=== PATIENT | male | born 1980 | race African-American/Black ===

== ENCOUNTER 2016-10-17 16:45 | Inpatient (IN) | payer OTHER ==
[~2016-10-17] VITALS: Ht 337.8 cm; Wt 86.7 kg
[~2016-10-17 16:45] MED LIST: Folic Acid PO; KEPP500 PO; LEVO500T15 PO; Multivitamins,Ther W-Minerals PO; PHEN100C4 PO; Thiamine Hcl PO
[2016-10-17] MEDS ORDERED: SODIUM CHLORIDE 0.9% 1,000 ML IV ONE ×2 (17:04→18:05)
[2016-10-17 17:26] LABS: HEMATOCRIT. 44.7 % (42.0-52.0); HEMOGLOBIN. 14.2 g/dL (14.0-18.0); MEAN CORPUSCULAR HEMOGLOBIN 33.8 pg (28.0-32.0); MEAN CORPUSCULAR HGB CONC 31.8 g/dL (31.0-37.0); MEAN CORPUSCULAR VOLUME 106.3 fL (80.0-94.0); MEAN PLATELET VOLUME 7.8 fl (7.4-10.4); PLATELET 189 x1000/uL (130-400); RED CELL DISTRIBUTION WIDTH 13.5 % (11.6-14.6); WHITE BLOOD COUNT 11.6 x1000/uL (4.5-11.0)
[2016-10-17 17:32] LABS: DIFFERENTIAL COMMENT 1
[2016-10-17 17:33] LABS: ANION GAP 39; CALCIUM 9.1 mg/dL (8.5-10.1); CHLORIDE 96 mEq/L (98-107); ETHANOL BLOOD 31 mg/dL; INDEX HEMOLYSI 1 (1-3); INDEX ICTERIC 1 (1-4); INDEX LIPEMIC 1 (1-3); PARTIAL THROMBOPLASTIN TIME 28.9 sec (24.0-34.0); PROTHROMBIN TIME 10.7 sec; UREA NITROGEN BLOOD 10 mg/dL (7-21)
[2016-10-17 17:36] LABS: PHENYTOIN 1.1 ug/mL (10-20); eGFR > 60 mL/min (>60)
[2016-10-17 17:38] LABS: CARBON DIOXIDE 6 mEq/L (21-32)
[2016-10-17 18:11] LABS: GIANT PLATELETS FEW; PLATELET ESTIMATE NORMAL
[2016-10-17] MEDS ORDERED: PHENYTOIN SODIUM 1,000 MG in SODIUM CHLORIDE 0.9% 100 ML IV ONE (18:15)
[2016-10-17] MEDS ORDERED: LORAZEPAM 2MG/ML CPJ IV ONE (18:45)
[2016-10-17] MEDS ORDERED: HYDROMORPHONE HCL/PF 2MG/ML CPJ IV PRN (19:00)
[2016-10-17] MEDS ORDERED: LORAZEPAM 2MG/ML CPJ IV PRN (19:00)
[2016-10-17] MEDS ORDERED: MAGNESIUM/ALUMINUM HYDROXIDE/SIMETHICONE 30ML UDC PO PRN (19:00)
[2016-10-17] MEDS ORDERED: GUAIFENESIN 200MG/10ML SUGAR FREE UDC PO PRN (19:00)
[2016-10-17] MEDS ORDERED: LEVOFLOXACIN 500MG PREMIX 100 ML IV NR (19:00)
[2016-10-17] MEDS ORDERED: IPRATROPIUM/ALBUTEROL 0.5-3(2.5)MG/3ML NEB INH PRN (19:00)
[2016-10-17] MEDS ORDERED: ONDANSETRON HCL 4MG/2ML VIAL IV PRN (19:00)
[2016-10-17] MEDS ORDERED: DIPHENHYDRAMINE 50MG/ML VIAL IV PRN (19:00)
[2016-10-17] MEDS ORDERED: DOCUSATE SODIUM 100MG CAPSULE PO PRN (19:00)
[2016-10-17] MEDS ORDERED: NA PHOS,M-B/NA PHOS,DI-BA ENEMA 118ML PR PRN (19:00)
[2016-10-17] MEDS ORDERED: CLONIDINE 0.1MG TABLET PO PRN (19:00)
[2016-10-17] MEDS ORDERED: HYDROCODONE/ACETAMINOPHEN 5/325MG TABLET PO PRN (19:00)
[2016-10-17 19:07] LABS: BG BASE EXCESS -20.6 mmol/L (-2.0-2.0); BG CARBOXYHEMOGLOBIN 0.3 % (0.5-1.5); BG DEOXYHEMOGLOBIN 14.1 % (0.0-5.0); BG FRACTION INSPIRED OXYGEN 100; BG METHEMOGLOBIN 0.5 % (0.0-1.5); BG OXYGEN SATURATION 85.8 % (92.0-98.5); BG OXYHEMOGLOBIN 85.1 % (94.0-97.0); BG PCO2 40.1 mmHg (35.0-45.0); BG PH 7.013 (7.350-7.450); BG SAMPLE SITE RIGHT BRACHIAL; BG TOTAL HEMOGLOBIN 14.7 g/dL (12.0-18.0); BG VENT MODE MASK - NRB
[2016-10-17] MEDS ORDERED: SODIUM BICARBONATE 8.4% 1 MEQ/ML 50ML SYR IV ONE (19:15)
[2016-10-17] MEDS ORDERED: SODIUM BICARBONATE 100 MEQ in DEXTROSE 5% WATER 1,000 ML IV SCH (19:15)
[2016-10-17 19:40] LABS: CREATINE KINASE MB FRACTION 0.8 ng/mL (0.5-3.6)
[2016-10-17 19:41] LABS: *AMPHETAMINES SCREEN URINE NEGATIVE (NEGATIVE); *BARBITURATES SCREEN URINE NEGATIVE (NEGATIVE); *BENZODIAZEPINES SCREEN URINE NEGATIVE (NEGATIVE); *COCAINE SCREEN URINE NEGATIVE (NEGATIVE); CANNABINOID URINE SCREEN PRESUMTIVE POSITIVE (NEGATIVE); ECSTASY MDMA SCREEN URINE NEGATIVE (NEGATIVE); METHADONE URINE SCREEN NEGATIVE (NEGATIVE); OPIATES URINE SCREEN NEGATIVE (NEGATIVE); PHENCYCLIDINE URINE SCREEN NEGATIVE (NEGATIVE)
[2016-10-17] MEDS: ACETAMINOPHEN 325MG TABLET PO PRN (21:09)
[2016-10-18] VITALS (9 sets, daily range): BP systolic 147–165; BP diastolic 64–121
[2016-10-18] MEDS: ACETAMINOPHEN 325MG TABLET PO PRN (04:23)
[2016-10-18 05:49] LABS: BASOPHILS % 0.5 % (0.0-2.0); EOSINOPHILS % 0.1 % (0.0-5.0); HEMATOCRIT. 38.6 % (42.0-52.0); HEMOGLOBIN. 13.3 g/dL (14.0-18.0); LYMPHOCYTES % 12.3 % (20.0-50.0); MEAN CORPUSCULAR HGB CONC 34.6 g/dL (31.0-37.0); MEAN CORPUSCULAR VOLUME 98.2 fL (80.0-94.0); MEAN PLATELET VOLUME 7.4 fl (7.4-10.4); MONOCYTES % 12.7 % (2.0-8.0); NEUTROPHILS % 74.4 % (40.0-76.0); PLATELET 147 x1000/uL (130-400); RED BLOOD CELL COUNT 3.93 mill/uL (4.7-6.1); WHITE BLOOD COUNT 8.6 x1000/uL (4.5-11.0)
[2016-10-18 05:52] LABS: DIFFERENTIAL COMMENT 1
[2016-10-18 06:11] LABS: ALANINE AMINOTRANSFERASE 27 IU/L (13-61); ALBUMIN 3.7 g/dL (3.4-5.0); ANION GAP 15; CALCIUM 8.3 mg/dL (8.5-10.1); CARBON DIOXIDE 30 mEq/L (21-32); CHLORIDE 96 mEq/L (98-107); INDEX HEMOLYSI 1 (1-3); INDEX ICTERIC 1 (1-4); INDEX LIPEMIC 1 (1-3); LDL CHOLESTEROL 114 mg/dL (5-100); T4 FREE 0.69 ng/dL (0.76-1.46); THYROID STIMULATING HORMONE 0.64 uIU/mL (0.36-3.74); TRIGLYCERIDE 100 mg/dL (0-150); UREA NITROGEN BLOOD 5 mg/dL (7-21); eGFR > 60 mL/min (>60)
[2016-10-18] MEDS: DEXT 5%/0.45% NACL 1000ML 1,000 ML IV SCH (06:50)
[2016-10-18 07:57] LABS: HDL CHOLESTEROL 196 mg/dL (40-59)
[2016-10-18] MEDS ORDERED: POTASSIUM CHLORIDE INJ 40 MEQ in DEXT 5% WATER 250 ML IV SCH (10:00)
[2016-10-18 10:15] LABS: BG BASE EXCESS 5.2 mmol/L (-2.0-2.0); BG CARBOXYHEMOGLOBIN 0.8 % (0.5-1.5); BG DEOXYHEMOGLOBIN 3.9 % (0.0-5.0); BG FRACTION INSPIRED OXYGEN 21; BG HCO3 ACT 28.9 mmol/L (22.0-26.0); BG METHEMOGLOBIN 0.5 % (0.0-1.5); BG OXYHEMOGLOBIN 94.8 % (94.0-97.0); BG PH 7.487 (7.350-7.450); BG PO2 78.4 mmHg (75.0-100.0); BG SAMPLE SITE RIGHT RADIAL; BG TOTAL HEMOGLOBIN 14.7 g/dL (12.0-18.0); BG VENT MODE ROOM AIR
[2016-10-18 10:39] LABS: MAGNESIUM 2.1 mg/dL (1.8-2.4)
[2016-10-18] MEDS: ASPIRIN 81MG EC TABLET PO SCH (10:50)
[2016-10-18] MEDS ORDERED: LEVOFLOXACIN 500MG PREMIX 100 ML IV SCH (20:00)
[2016-10-19] VITALS (8 sets, daily range): BP systolic 131–158; BP diastolic 79–114
[2016-10-19] MEDS: DEXT 5%/0.45% NACL 1000ML 1,000 ML IV SCH (01:12)
[2016-10-19 05:57] LABS: BASOPHILS % 0.8 % (0.0-2.0); EOSINOPHILS % 2.7 % (0.0-5.0); HEMATOCRIT. 44.1 % (42.0-52.0); HEMOGLOBIN. 15.1 g/dL (14.0-18.0); LYMPHOCYTES % 21.7 % (20.0-50.0); MEAN CORPUSCULAR HGB CONC 34.2 g/dL (31.0-37.0); MEAN CORPUSCULAR VOLUME 99.2 fL (80.0-94.0); MEAN PLATELET VOLUME 8.3 fl (7.4-10.4); MONOCYTES % 14.2 % (2.0-8.0); NEUTROPHILS % 60.6 % (40.0-76.0); PLATELET 156 x1000/uL (130-400); RED BLOOD CELL COUNT 4.44 mill/uL (4.7-6.1); RED CELL DISTRIBUTION WIDTH 12.7 % (11.6-14.6); WHITE BLOOD COUNT 6.7 x1000/uL (4.5-11.0)
[2016-10-19 06:27] LABS: ANION GAP 13; CARBON DIOXIDE 28 mEq/L (21-32); CHLORIDE 100 mEq/L (98-107); INDEX HEMOLYSI 1 (1-3); INDEX ICTERIC 1 (1-4); INDEX LIPEMIC 1 (1-3); eGFR > 60 mL/min (>60)
[2016-10-19 06:30] LABS: UREA NITROGEN BLOOD 4 mg/dL (7-21)
[2016-10-19] MEDS: ASPIRIN 81MG EC TABLET PO SCH (08:21)
[2016-10-19] MEDS ORDERED: FOLIC ACID 1MG TABLET PO SCH (09:00)
[2016-10-19] MEDS ORDERED: THIAMINE HCL 100MG TABLET PO SCH (09:00)
[2016-10-19] MEDS ORDERED: LEVETIRACETAM 500MG TABLET PO SCH (09:00)
[2016-10-19] MEDS ORDERED: MULTIVITAMINS,THER W-MINERALS TABLET PO SCH (09:00)
[2016-10-19] MEDS ORDERED: PHENYTOIN SODIUM EXTENDED 100MG CAPSULE PO SCH (09:00)
[2016-10-19] MEDS ORDERED: POTASSIUM CHLORIDE 20MEQ TABLET SR PO SCH (09:00)
[2016-10-19 09:13] LABS: PHOSPHORUS 1.7 mg/dL (2.5-4.9)
[2016-10-19] MEDS ORDERED: LEVOFLOXACIN 500MG PREMIX 100 ML IV SCH (20:00)
== END 2016-10-19 11:50 | disposition home or self-care (01) | DRG 775 ==
LOC: ER 17:05 → 5EST 18:56
PROVIDERS: ADMIT Internal Medicine; ATTEND Internal Medicine
DX: F10.239 Alcohol dependence with withdrawal, unspecified (principal); G93.41 Metabolic encephalopathy; E87.2 Acidosis; R65.10 Systemic inflammatory response syndrome (SIRS) of non-infectious origin without acute organ dysfunction; G31.9 Degenerative disease of nervous system, unspecified; E83.39 Other disorders of phosphorus metabolism; E86.0 Dehydration; G40.509 Epileptic seizures related to external causes, not intractable, without status epilepticus; E78.5 Hyperlipidemia, unspecified; D64.9 Anemia, unspecified; E87.6 Hypokalemia; I10 Essential (primary) hypertension; Z90.49 Acquired absence of other specified parts of digestive tract; Z91.19 Patient's noncompliance with other medical treatment and regimen; Z79.899 Other long term (current) drug therapy
CPT/HCPCS: 36415; 36600; 70450; 71010; 80048; 80053; 80061; 80185; 80305; 82375; 82550; 82553; 82805; 82962; 83605; 83735; 84100; 84439; 84443; 85025; 85610; 85730; 93005; 96365; 96366; 96367; 96368; 96375; 99291; G0482; J1165; J1956; J2060; J3480; J3490; J7030; J7050; J7060; J7070

== ENCOUNTER 2017-04-16 21:02 | Inpatient (IN) | payer OTHER ==
[~2017-04-16] VITALS: Ht 175.3 cm; Wt 74.4 kg
[~2017-04-16 21:02] MED LIST changes: -LEVO500T15 PO; +LEVO500T2 PO
[2017-04-16] MEDS ORDERED: ONDANSETRON HCL 4MG/2ML VIAL IV STA (21:53)
[2017-04-16] MEDS ORDERED: SODIUM CHLORIDE 0.9% 1,000 ML IV ONE (21:53)
[2017-04-16] MEDS ORDERED: LORAZEPAM 2MG/ML CPJ IV ONE (22:00)
[2017-04-16] MEDS ORDERED: LEVETIRACETAM 500MG PREMIX 100 ML IV ONE (22:00)
[2017-04-16] MEDS ORDERED: LORAZEPAM 2MG/ML CPJ ONE (22:02)
[2017-04-16 22:22] LABS: HEMATOCRIT. 42.2 % (42.0-52.0); HEMOGLOBIN. 14.2 g/dL (14.0-18.0); MEAN CORPUSCULAR HEMOGLOBIN 35.4 pg (28.0-32.0); MEAN CORPUSCULAR VOLUME 105.3 fL (80.0-94.0); MEAN PLATELET VOLUME 8.2 fl (7.4-10.4); PLATELET 141 x1000/uL (130-400); RED BLOOD CELL COUNT 4.01 mill/uL (4.7-6.1); RED CELL DISTRIBUTION WIDTH 13.2 % (11.6-14.6)
[2017-04-16 22:35] LABS: CHLORIDE 95 mEq/L (98-107)
[2017-04-16 22:43] LABS: CARBON DIOXIDE 14 mEq/L (21-32); ETHANOL BLOOD < 10 mg/dL
[2017-04-16 22:48] LABS: PLATELET ESTIMATE NORMAL
[2017-04-16] MEDS ORDERED: SODIUM CHLORIDE 0.9% 1,000 ML IV SCH (23:28)
[2017-04-16] MEDS ORDERED: PHENYTOIN SODIUM 500 MG in SODIUM CHLORIDE 0.9% 50 ML IV ONE (23:30)
[2017-04-17] MEDS ORDERED: IPRATROPIUM/ALBUTEROL 0.5-3(2.5)MG/3ML NEB INH PRN (00:45)
[2017-04-17] MEDS ORDERED: ONDANSETRON HCL 4MG/2ML VIAL IV PRN (00:45)
[2017-04-17] MEDS ORDERED: LORAZEPAM 2MG/ML CPJ IV PRN (00:45)
[2017-04-17] MEDS ORDERED: HYDROCODONE/ACETAMINOPHEN 5/325MG TABLET PO PRN (00:45)
[2017-04-17] MEDS ORDERED: CLONIDINE 0.1MG TABLET PO PRN (00:45)
[2017-04-17] MEDS ORDERED: MAGNESIUM/ALUMINUM HYDROXIDE/SIMETHICONE 30ML UDC PO PRN (00:45)
[2017-04-17] MEDS ORDERED: MVI, ADULT NO.1 10 ML, FOLIC ACID 1 MG, THIAMINE HCL 100 MG in SODIUM CHLORIDE 0.9% 1,0... IV SCH ×4 (02:00)
[2017-04-17 03:25] LABS: *AMPHETAMINES SCREEN URINE NEGATIVE (NEGATIVE); *BARBITURATES SCREEN URINE NEGATIVE (NEGATIVE); *BENZODIAZEPINES SCREEN URINE NEGATIVE (NEGATIVE); *COCAINE SCREEN URINE NEGATIVE (NEGATIVE); CANNABINOID URINE SCREEN PRESUMTIVE POSITIVE (NEGATIVE); METHADONE URINE SCREEN NEGATIVE (NEGATIVE); OPIATES URINE SCREEN NEGATIVE (NEGATIVE); PHENCYCLIDINE URINE SCREEN NEGATIVE (NEGATIVE)
[2017-04-17 03:45] VITALS: BP 143/90
[2017-04-17 05:26] VITALS: BP 143/90
[2017-04-17] MEDS: PHENYTOIN SODIUM EXTENDED 100MG CAPSULE PO SCH ×3 (06:37→21:48)
[2017-04-17] MEDS: CHLORDIAZEPOXIDE 25MG CAPSULE PO SCH ×3 (06:37→21:48)
[2017-04-17 08:00] VITALS: BP 126/82
[2017-04-17] MEDS: LEVETIRACETAM 500MG/5ML CUP PO SCH ×2 (08:15→21:48)
[2017-04-17 11:23] LABS: HEMOGLOBIN. 14.1 g/dL (14.0-18.0); MEAN CORPUSCULAR HEMOGLOBIN 35.7 pg (28.0-32.0); MEAN CORPUSCULAR VOLUME 101.1 fL (80.0-94.0); MEAN PLATELET VOLUME 9.1 fl (7.4-10.4); PLATELET 119 x1000/uL (130-400); RED BLOOD CELL COUNT 3.96 mill/uL (4.7-6.1); RED CELL DISTRIBUTION WIDTH 12.9 % (11.6-14.6)
[2017-04-17 11:49] LABS: CARBON DIOXIDE 25 mEq/L (21-32); CHLORIDE 98 mEq/L (98-107); TROPONIN I 0.21 ng/mL (0.00-0.04)
[2017-04-17 11:53] LABS: CREATINE KINASE 1291 IU/L (39-308)
[2017-04-17 12:00] VITALS: BP 127/74
[2017-04-17] MEDS: ACETAMINOPHEN 325MG TABLET PO PRN ×3 (12:39→21:49)
[2017-04-17 13:57] LABS: PLATELET ESTIMATE SLIGHTLY DECREASED
[2017-04-17] MEDS ORDERED: POTASSIUM CHLORIDE 20MEQ TABLET SR PO NR (14:30)
[2017-04-17] MEDS ORDERED: PHEN100C4 PO (15:57)
[2017-04-17 16:00] VITALS: BP 115/71
[2017-04-17 17:45] LABS: TROPONIN I 0.16 ng/mL (0.00-0.04)
[2017-04-17 17:46] LABS: CREATINE KINASE MB FRACTION 1.7 ng/mL (0.5-3.6)
[2017-04-17 18:05] LABS: HEPATITIS B SURFACE ANTIGEN NEGATIVE
[2017-04-17 18:34] LABS: HEPATITIS B CORE AB IGM NEGATIVE
[2017-04-17 18:35] LABS: HEPATITIS A AB IGM NEGATIVE (NEGATIVE)
[2017-04-17 20:00] VITALS: BP 134/88
[2017-04-18] VITALS: BP 125/74
[2017-04-18 04:00] VITALS: BP 104/61
[2017-04-18] MEDS: ACETAMINOPHEN 325MG TABLET PO PRN (04:43)
[2017-04-18] MEDS: PHENYTOIN SODIUM EXTENDED 100MG CAPSULE PO SCH ×3 (05:52→21:21)
[2017-04-18] MEDS: SODIUM CHLORIDE 0.9% 1,000 ML IV SCH ×2 (05:52→21:24)
[2017-04-18] MEDS: CHLORDIAZEPOXIDE 25MG CAPSULE PO SCH ×3 (05:52→21:21)
[2017-04-18 05:56] LABS: BASOPHILS % 0.4 % (0.0-2.0); EOSINOPHILS % 1.4 % (0.0-5.0); HEMOGLOBIN. 13.8 g/dL (14.0-18.0); LYMPHOCYTES % 13.1 % (20.0-50.0); MEAN PLATELET VOLUME 8.9 fl (7.4-10.4); MONOCYTES % 10.2 % (2.0-8.0); NEUTROPHILS % 74.9 % (40.0-76.0); PLATELET 114 x1000/uL (130-400); RED BLOOD CELL COUNT 3.96 mill/uL (4.7-6.1); RED CELL DISTRIBUTION WIDTH 12.8 % (11.6-14.6)
[2017-04-18 06:38] LABS: CHLORIDE 101 mEq/L (98-107)
[2017-04-18 06:50] LABS: CARBON DIOXIDE 26 mEq/L (21-32)
[2017-04-18 08:00] VITALS: BP 106/65
[2017-04-18] MEDS ORDERED: INFLUENZA VIRUS VACCINE 0.5ML SYR IM ONE (08:00)
[2017-04-18] MEDS ORDERED: PHENYTOIN SODIUM 500 MG in SODIUM CHLORIDE 0.9% 50 ML IV SCH (09:00)
[2017-04-18] MEDS: FOLIC ACID 1MG TABLET PO SCH (10:03)
[2017-04-18] MEDS: LEVETIRACETAM 500MG/5ML CUP PO SCH ×2 (10:03→21:21)
[2017-04-18] MEDS: MULTIVITAMINS,THER W-MINERALS TABLET PO SCH (10:03)
[2017-04-18] MEDS: THIAMINE HCL 100MG TABLET PO SCH (10:03)
[2017-04-18 12:00] VITALS: BP 118/82
[2017-04-18 16:00] VITALS: BP 122/92
[2017-04-18 20:00] VITALS: BP 121/84
[2017-04-19] VITALS: BP 122/82
[2017-04-19 04:00] VITALS: BP 114/62
[2017-04-19] MEDS: PHENYTOIN SODIUM EXTENDED 100MG CAPSULE PO SCH (05:10)
[2017-04-19] MEDS: CHLORDIAZEPOXIDE 25MG CAPSULE PO SCH (05:10)
[2017-04-19 06:31] LABS: BASOPHILS % 0.9 % (0.0-2.0); EOSINOPHILS % 2.3 % (0.0-5.0); HEMATOCRIT. 39.2 % (42.0-52.0); HEMOGLOBIN. 13.8 g/dL (14.0-18.0); LYMPHOCYTES % 15.1 % (20.0-50.0); MEAN CORPUSCULAR HEMOGLOBIN 35.8 pg (28.0-32.0); MEAN CORPUSCULAR VOLUME 101.6 fL (80.0-94.0); MEAN PLATELET VOLUME 9.2 fl (7.4-10.4); MONOCYTES % 11.8 % (2.0-8.0); NEUTROPHILS % 69.9 % (40.0-76.0); PLATELET 122 x1000/uL (130-400); RED BLOOD CELL COUNT 3.86 mill/uL (4.7-6.1); RED CELL DISTRIBUTION WIDTH 12.9 % (11.6-14.6)
[2017-04-19 07:18] LABS: CARBON DIOXIDE 28 mEq/L (21-32); CHLORIDE 105 mEq/L (98-107)
[2017-04-19 08:00] VITALS: BP 133/81
[2017-04-19] MEDS ORDERED: POTASSIUM CHLORIDE 20MEQ TABLET SR PO SCH (09:00)
[2017-04-19] MEDS: MULTIVITAMINS,THER W-MINERALS TABLET PO SCH (09:04)
[2017-04-19] MEDS: LEVETIRACETAM 500MG/5ML CUP PO SCH (09:04)
[2017-04-19] MEDS: FOLIC ACID 1MG TABLET PO SCH (09:05)
[2017-04-19] MEDS: THIAMINE HCL 100MG TABLET PO SCH (09:12)
[2017-04-19] MEDS: SODIUM CHLORIDE 0.9% 1,000 ML IV SCH (09:13)
[2017-04-19] MEDS ORDERED: KEPPSOL PO (11:12)
[2017-04-19] MEDS ORDERED: THIA100T72 PO (11:12)
[2017-04-19] MEDS ORDERED: FOLI-43 PO (11:12)
[2017-04-19] MEDS ORDERED: PHEN100C4 PO (11:12)
== END 2017-04-19 12:15 | disposition left against medical advice (07) | DRG 53 ==
LOC: ER 21:03 → 5WST 23:30 → EDBEDREQ 23:34 → ENRESERV 04-17 02:09
PROVIDERS: ADMIT Internal Medicine; ATTEND Internal Medicine
DX: G40.409 Other generalized epilepsy and epileptic syndromes, not intractable, without status epilepticus (principal); E87.8 Other disorders of electrolyte and fluid balance, not elsewhere classified; K76.0 Fatty (change of) liver, not elsewhere classified; E86.0 Dehydration; F10.10 Alcohol abuse, uncomplicated; F12.90 Cannabis use, unspecified, uncomplicated; Z59.0 Homelessness; Z60.2 Problems related to living alone; Z79.899 Other long term (current) drug therapy; Z90.49 Acquired absence of other specified parts of digestive tract; Z91.14 Patient's other noncompliance with medication regimen; Z91.19 Patient's noncompliance with other medical treatment and regimen; Z53.21 Procedure and treatment not carried out due to patient leaving prior to being seen by health care provider
CPT/HCPCS: 36415; 70450; 70551; 71010; 76700; 80048; 80053; 80185; 80305; 82550; 82553; 83735; 84484; 85025; 86705; 86709; 86803; 87340; 90686; 93005; 93970; 96365; 96367; 96375; 97161; 99291; G0482; J1165; J1953; J2060; J2405; J3411; J3490; J7030

== ENCOUNTER 2017-06-14 08:11 | Emergency (ER) | payer OTHER ==
[~2017-06-14] VITALS: Ht 172.7 cm; Wt 70.0 kg
[~2017-06-14 08:11] MED LIST changes: +FOLI-43 PO; +KEPPSOL PO; -LEVO500T2 PO; +THIA100T72 PO
[2017-06-14] MEDS ORDERED: SODIUM CHLORIDE 0.9% 1,000 ML IV ONE (08:19)
[2017-06-14] MEDS ORDERED: LEVETIRACETAM 500MG PREMIX 100 ML IV ONE (08:30)
[2017-06-14 08:52] LABS: BASOPHILS % 1.3 % (0.0-2.0); EOSINOPHILS % 2.1 % (0.0-5.0); HEMATOCRIT. 41.1 % (42.0-52.0); HEMOGLOBIN. 14.1 g/dL (14.0-18.0); LYMPHOCYTES % 18.2 % (20.0-50.0); MEAN CORPUSCULAR HEMOGLOBIN 35.6 pg (28.0-32.0); MEAN CORPUSCULAR VOLUME 103.9 fL (80.0-94.0); MEAN PLATELET VOLUME 7.4 fl (7.4-10.4); MONOCYTES % 9.1 % (2.0-8.0); NEUTROPHILS % 69.3 % (40.0-76.0); PLATELET 200 x1000/uL (130-400); RED BLOOD CELL COUNT 3.96 mill/uL (4.7-6.1); RED CELL DISTRIBUTION WIDTH 13.1 % (11.6-14.6)
[2017-06-14 08:58] LABS: CHLORIDE 100 mEq/L (98-107)
[2017-06-14 09:00] LABS: PARTIAL THROMBOPLASTIN TIME 22.7 sec (23.4-31.0); PROTHROMBIN TIME 10.7 sec (9.4-11.6)
[2017-06-14 09:05] LABS: CARBON DIOXIDE 20 mEq/L (21-32); ETHANOL BLOOD 69 mg/dL
[2017-06-14] MEDS ORDERED: LEVETIRACETAM 500MG TABLET PO ONE (09:15)
[2017-06-14] MEDS ORDERED: PHENYTOIN SODIUM 1,000 MG in SODIUM CHLORIDE 0.9% 100 ML IV ONE (09:15)
[2017-06-14 10:33] LABS: *AMPHETAMINES SCREEN URINE NEGATIVE (NEGATIVE); *BARBITURATES SCREEN URINE NEGATIVE (NEGATIVE); *BENZODIAZEPINES SCREEN URINE NEGATIVE (NEGATIVE); *COCAINE SCREEN URINE PRESUMTIVE POSITIVE (NEGATIVE); CANNABINOID URINE SCREEN PRESUMTIVE POSITIVE (NEGATIVE); METHADONE URINE SCREEN NEGATIVE (NEGATIVE); OPIATES URINE SCREEN NEGATIVE (NEGATIVE); PHENCYCLIDINE URINE SCREEN NEGATIVE (NEGATIVE)
[2017-06-14 11:50] VITALS: BP 141/76
== END 2017-06-14 11:58 | disposition home or self-care (01) ==
LOC: ER 08:24
DX: G40.409 Other generalized epilepsy and epileptic syndromes, not intractable, without status epilepticus (principal); F10.229 Alcohol dependence with intoxication, unspecified; E87.2 Acidosis; R73.9 Hyperglycemia, unspecified; F12.10 Cannabis abuse, uncomplicated; Z91.14 Patient's other noncompliance with medication regimen; Z90.49 Acquired absence of other specified parts of digestive tract; Y90.3 Blood alcohol level of 60-79 mg/100 ml
CPT/HCPCS: 36415; 70450; 80048; 80185; 80305; 85025; 85610; 85730; 96365; 96366; 96367; 99285; G0482; J1165; J1953; J7030; J7050

== ENCOUNTER 2017-09-04 16:38 | Emergency (ER) | payer OTHER ==
[~2017-09-04] VITALS: Ht 185.4 cm; Wt 91.0 kg
[2017-09-04] MEDS ORDERED: ACETAMINOPHEN WITH CODEINE 300/30MG TABLET PO STA (16:58)
[2017-09-04] MEDS ORDERED: LEVETIRACETAM 500MG PREMIX 100 ML IV ONE (17:00)
[2017-09-04 17:20] LABS: HEMATOCRIT. 40.2 % (42.0-52.0); HEMOGLOBIN. 13.8 g/dL (14.0-18.0); MEAN CORPUSCULAR HEMOGLOBIN 35.2 pg (28.0-32.0); MEAN CORPUSCULAR VOLUME 102.6 fL (80.0-94.0); MEAN PLATELET VOLUME 8.8 fl (7.4-10.4); PLATELET 158 x1000/uL (130-400); RED BLOOD CELL COUNT 3.92 mill/uL (4.7-6.1); RED CELL DISTRIBUTION WIDTH 13.3 % (11.6-14.6)
[2017-09-04 17:22] LABS: CHLORIDE 95 mEq/L (98-107)
[2017-09-04 17:27] LABS: ETHANOL BLOOD < 10 mg/dL; INR 1.1
[2017-09-04 18:42] LABS: CLARITY URINE CLEAR (CLEAR); COLOR URINE YELLOW (YELLOW); KETONES URINE 3+ (NEGATIVE); LEUKOCYTE ESTERASE URINE NEGATIVE (NEGATIVE); NITRITE URINE NEGATIVE (NEGATIVE); OCCULT BLOOD URINE 1+ (NEGATIVE); PROTEIN URINE 2+ (NEGATIVE); SPECIFIC GRAVITY URINE 1.022 (1.005-1.030)
[2017-09-04] MEDS ORDERED: PHENYTOIN SODIUM 1,000 MG in SODIUM CHLORIDE 0.9% 100 ML IV ONE (18:45)
[2017-09-04 18:49] LABS: PLATELET ESTIMATE NORMAL
[2017-09-04 19:03] LABS: *AMPHETAMINES SCREEN URINE NEGATIVE (NEGATIVE); *BARBITURATES SCREEN URINE NEGATIVE (NEGATIVE); *BENZODIAZEPINES SCREEN URINE NEGATIVE (NEGATIVE); *COCAINE SCREEN URINE NEGATIVE (NEGATIVE); CANNABINOID URINE SCREEN PRESUMTIVE POSITIVE (NEGATIVE); METHADONE URINE SCREEN NEGATIVE (NEGATIVE); OPIATES URINE SCREEN NEGATIVE (NEGATIVE); PHENCYCLIDINE URINE SCREEN NEGATIVE (NEGATIVE)
[2017-09-04 22:46] VITALS: BP 135/85
== END 2017-09-04 22:50 | disposition home or self-care (01) ==
LOC: ER 16:49
DX: G40.909 Epilepsy, unspecified, not intractable, without status epilepticus (principal); F10.20 Alcohol dependence, uncomplicated; Z90.49 Acquired absence of other specified parts of digestive tract
CPT/HCPCS: 36415; 70450; 80053; 80185; 80305; 81003; 85025; 85610; 96365; 96366; 96367; 99285; G0482; J1165; J1953; J7050

== ENCOUNTER 2018-07-20 19:14 | Inpatient (IN) | payer OTHER ==
[~2018-07-20] VITALS: Ht 172.7 cm; Wt 81.6 kg
[~2018-07-20 19:14] MED LIST changes: +KEPPSOL GT
[2018-07-20 22:02] LABS: HEMATOCRIT. 40.9 % (42.0-52.0); MEAN CORPUSCULAR HEMOGLOBIN 34.8 pg (28.0-32.0); MEAN CORPUSCULAR VOLUME 101.4 fL (80.0-94.0); MEAN PLATELET VOLUME 9.9 fl (7.4-10.4); PLATELET 147 x1000/uL (130-400); RED BLOOD CELL COUNT 4.03 mill/uL (4.7-6.1); RED CELL DISTRIBUTION WIDTH 12.9 % (11.6-14.6)
[2018-07-20 22:03] LABS: CHLORIDE 87 mEq/L (98-107)
[2018-07-20 22:07] LABS: ETHANOL BLOOD < 10 mg/dL
[2018-07-20] MEDS ORDERED: SODIUM CHLORIDE 0.9% 1,000 ML IV ONE ×4 (22:15→23:45)
[2018-07-20 22:31] LABS: PLATELET ESTIMATE NORMAL
[2018-07-20 23:08] LABS: CREATINE KINASE 23106 IU/L (39-308)
[2018-07-20 23:59] LABS: CLARITY URINE CLEAR (CLEAR); COLOR URINE YELLOW (YELLOW); KETONES URINE 4+ (NEGATIVE); LEUKOCYTE ESTERASE URINE NEGATIVE (NEGATIVE); NITRITE URINE NEGATIVE (NEGATIVE); OCCULT BLOOD URINE 2+ (NEGATIVE); PROTEIN URINE TRACE (NEGATIVE); SPECIFIC GRAVITY URINE 1.012 (1.005-1.030); UROBILINOGEN URINE 0.2 E.U./dL (0.2-1.0)
[2018-07-21] MEDS ORDERED: LEVETIRACETAM 500MG PREMIX 100 ML IV ONE
[2018-07-21 00:21] LABS: *BARBITURATES SCREEN URINE NEGATIVE (NEGATIVE); *BENZODIAZEPINES SCREEN URINE NEGATIVE (NEGATIVE); *COCAINE SCREEN URINE NEGATIVE (NEGATIVE)
[2018-07-21 00:22] LABS: *AMPHETAMINES SCREEN URINE NEGATIVE (NEGATIVE); CANNABINOID URINE SCREEN NEGATIVE (NEGATIVE); METHADONE URINE SCREEN NEGATIVE (NEGATIVE); OPIATES URINE SCREEN NEGATIVE (NEGATIVE); PHENCYCLIDINE URINE SCREEN NEGATIVE (NEGATIVE)
[2018-07-21] MEDS ORDERED: HYDROCODONE/ACETAMINOPHEN 5/325MG TABLET PO PRN ×2 (00:30→06:00)
[2018-07-21] MEDS ORDERED: ONDANSETRON HCL 4MG/2ML INJ IV PRN ×2 (00:30→06:00)
[2018-07-21] MEDS ORDERED: HYDROMORPHONE HCL/PF 2MG/ML CPJ IV PRN (00:30)
[2018-07-21] MEDS ORDERED: GUAIFENESIN 200MG/10ML SUGAR FREE UDC PO PRN ×2 (00:30→06:00)
[2018-07-21] MEDS ORDERED: MAGNESIUM/ALUMINUM HYDROXIDE/SIMETHICONE 30ML UDC PO PRN ×2 (00:30→06:00)
[2018-07-21] MEDS ORDERED: DEXTROSE 50% WATER 50ML SYRINGE IV PRN (00:30)
[2018-07-21] MEDS ORDERED: ENOXAPARIN 40MG/0.4ML SYR SUBCUT SCH ×2 (00:30→09:15)
[2018-07-21] MEDS ORDERED: DOCUSATE SODIUM 100MG CAPSULE PO PRN ×2 (00:30→06:00)
[2018-07-21] MEDS ORDERED: CLONIDINE 0.1MG TABLET PO PRN ×2 (00:30→06:00)
[2018-07-21] MEDS ORDERED: LORAZEPAM 2MG/ML CPJ IV PRN ×2 (00:30→06:00)
[2018-07-21] MEDS ORDERED: IPRATROPIUM/ALBUTEROL 0.5-3(2.5)MG/3ML NEB INH PRN ×2 (00:30→06:00)
[2018-07-21] MEDS ORDERED: ACETAMINOPHEN 325MG TABLET PO PRN ×2 (00:30→06:00)
[2018-07-21] MEDS ORDERED: SODIUM CHLORIDE 0.45% 1,000 ML IV SCH (05:48)
[2018-07-21] MEDS ORDERED: MORPHINE SULFATE 4 MG/ML CPJ (NOT FOR IM USE) IV PRN (06:00)
[2018-07-21] MEDS ORDERED: NA PHOS,M-B/NA PHOS,DI-BA ENEMA 118ML PR PRN (06:00)
[2018-07-21] MEDS ORDERED: DIPHENHYDRAMINE 50MG/ML VIAL IV PRN (06:00)
[2018-07-21] MEDS: SODIUM CHLORIDE 0.9% INJ 3ML FLUSH IVF SCH ×3 (06:00→20:30)
[2018-07-21] MEDS ORDERED: DEXT 5%/0.45% NACL 1000ML 1,000 ML IV SCH (06:30)
[2018-07-21 07:03] LABS: CREATINE KINASE MB FRACTION 86.6 ng/mL (0.5-3.6)
[2018-07-21] MEDS ORDERED: SODIUM BICARBONATE 8.4% 1 MEQ/ML 50ML SYR IV SCH (07:30)
[2018-07-21] MEDS ORDERED: SODIUM BICARBONATE 100 MEQ in SODIUM CHLORIDE 0.45% 1,000 ML IV SCH (07:30)
[2018-07-21] MEDS: INSULIN LISPRO 100 UNITS/ML SUBCUT SCH ×4 (08:20→20:30)
[2018-07-21] MEDS: BLOOD SUGAR DIAGNOSTIC STRIP TEST SCH ×4 (08:40→20:30)
[2018-07-21] MEDS ORDERED: ASPIRIN 81MG EC TABLET PO SCH (09:00)
[2018-07-21 09:52] LABS: BG BASE EXCESS -12.4 mmol/L (-2.0-2.0); BG CARBOXYHEMOGLOBIN 0.4 % (0.5-1.5); BG DEOXYHEMOGLOBIN 2.3 % (0.0-5.0); BG FRACTION INSPIRED OXYGEN 21; BG HCO3 ACT 10.4 mmol/L (22.0-26.0); BG METHEMOGLOBIN 0.7 % (0.0-1.5); BG OXYGEN SATURATION 97.7 % (92.0-98.5); BG OXYHEMOGLOBIN 96.6 % (94.0-97.0); BG PCO2 18.3 mmHg (35.0-45.0); BG PH 7.373 (7.350-7.450); BG PO2 105.7 mmHg (75.0-100.0); BG SAMPLE SITE RIGHT RADIAL; BG TOTAL HEMOGLOBIN 12.5 g/dL (12.0-18.0); BG VENT MODE ROOM AIR
[2018-07-21 10:00] VITALS: BP 131/68
[2018-07-21] MEDS: SODIUM BICARBONATE 100 MEQ in SODIUM CHLORIDE 0.45% 1,000 ML IV SCH ×2 (11:17→19:57)
[2018-07-21 12:00] VITALS: BP 131/68
[2018-07-21 15:59] LABS: CHLORIDE 102 mEq/L (98-107)
[2018-07-21 16:00] VITALS: BP 128/74
[2018-07-21 16:10] LABS: CREATINE KINASE MB FRACTION 54.8 ng/mL (0.5-3.6)
[2018-07-21 16:33] LABS: CREATINE KINASE 9676 IU/L (39-308)
[2018-07-21 20:00] VITALS: BP 120/64
[2018-07-22] VITALS: BP 122/68
[2018-07-22 02:35] VITALS: BP 138/74
[2018-07-22 03:21] VITALS: BP 138/74
[2018-07-24 15:10] LABS: METHANOL BLOOD Negative % (0.000-0.010)
[2018-07-24 19:09] LABS: ETHYLENE GLYCOL None Detected (None detected)
== END 2018-07-22 03:00 | disposition short-term general hospital (02) | DRG 53 ==
LOC: ER 19:14 → EDBD 23:51 → 7WST 23:51 → MERGE 23:51 → ENRESERV 07-21 08:02
PROVIDERS: ADMIT Internal Medicine; ATTEND Internal Medicine
DX: R56.9 Unspecified convulsions (principal); E11.649 Type 2 diabetes mellitus with hypoglycemia without coma; E87.2 Acidosis; M62.82 Rhabdomyolysis; E86.0 Dehydration; E87.1 Hypo-osmolality and hyponatremia; I10 Essential (primary) hypertension; Z59.0 Homelessness
CPT/HCPCS: 36415; 36600; 71045; 80048; 80305; 80320; 82375; 82550; 82553; 82693; 82805; 82962; 83605; 84484; 93005; 96361; 96365; 99285; G0482; J1650; J1953; J2060; J3490

== ENCOUNTER 2018-09-24 13:09 | Inpatient (IN) | payer OTHER ==
[~2018-09-24] VITALS: Ht 172.7 cm; Wt 90.3 kg
[2018-09-24] MEDS ORDERED: SODIUM CHLORIDE 0.9% 1,000 ML IV ONE (14:44)
[2018-09-24] MEDS ORDERED: LORAZEPAM 2MG/ML CPJ IV ONE ×2 (14:45→17:15)
[2018-09-24] MEDS ORDERED: LEVETIRACETAM 500MG PREMIX 100 ML IV ONE (14:45)
[2018-09-24 16:00] LABS: CHLORIDE 99 mEq/L (98-107)
[2018-09-24 16:07] LABS: HEMATOCRIT. 39.6 % (42.0-52.0); HEMOGLOBIN. 13.4 g/dL (14.0-18.0); MEAN CORPUSCULAR VOLUME 100.7 fL (80.0-94.0); MEAN PLATELET VOLUME 8.8 fl (7.4-10.4); PLATELET 137 x1000/uL (130-400); RED BLOOD CELL COUNT 3.93 mill/uL (4.7-6.1); RED CELL DISTRIBUTION WIDTH 13.3 % (11.6-14.6)
[2018-09-24 16:25] LABS: ETHANOL BLOOD < 10 mg/dL
[2018-09-24] MEDS ORDERED: PHENYTOIN SODIUM EXTENDED 100MG CAPSULE PO ONE (16:45)
[2018-09-24] MEDS ORDERED: MAGNESIUM OXIDE 400MG TABLET PO STA (16:45)
[2018-09-24] MEDS ORDERED: ONDANSETRON HCL 4MG/2ML INJ IV ONE ×2 (17:00→19:30)
[2018-09-24] MEDS ORDERED: KETOROLAC 15MG/ML VIAL IV ONE (17:15)
[2018-09-24] MEDS ORDERED: FOLIC ACID 1 MG, THIAMINE HCL 100 MG, MVI, ADULT NO.1 10 ML in DEXTROSE 5% WATER 1,000 ML IV ONE ×4 (17:15)
[2018-09-24] MEDS ORDERED: CLONIDINE 0.1MG TABLET PO PRN (17:45)
[2018-09-24] MEDS ORDERED: FOLIC ACID 1 MG, THIAMINE HCL 100 MG, MVI, ADULT NO.1 10 ML in DEXTROSE 5% WATER 1,000 ML IV SCH ×4 (17:45)
[2018-09-24] MEDS ORDERED: LORAZEPAM 2MG/ML CPJ IV PRN (17:45)
[2018-09-24] MEDS ORDERED: ONDANSETRON HCL 4MG/2ML INJ IV PRN (17:45)
[2018-09-24] MEDS ORDERED: ZOLPIDEM TARTRATE 5MG TABLET PO PRN (17:45)
[2018-09-24] MEDS ORDERED: ACETAMINOPHEN 325MG TABLET PO PRN (17:45)
[2018-09-24] MEDS ORDERED: KETOROLAC 30MG/ML VIAL IV PRN (17:45)
[2018-09-24 17:57] LABS: PLATELET ESTIMATE NORMAL
[2018-09-24] MEDS ORDERED: LEVETIRACETAM 500MG TABLET PO SCH (21:00)
[2018-09-25 04:00] VITALS: BP 131/67
[2018-09-25 04:22] VITALS: BP 131/67
[2018-09-25] MEDS ORDERED: DEXTROSE 5% WATER 1,000 ML IV SCH (06:00)
[2018-09-25] MEDS: PHENYTOIN SODIUM EXTENDED 100MG CAPSULE PO SCH ×2 (06:21→13:42)
[2018-09-25] MEDS: CHLORDIAZEPOXIDE 25MG CAPSULE PO SCH ×2 (06:21→13:42)
[2018-09-25 06:53] LABS: BASOPHILS % 0.6 % (0.0-2.0); EOSINOPHILS % 3.7 % (0.0-5.0); HEMATOCRIT. 37.6 % (42.0-52.0); HEMOGLOBIN. 12.9 g/dL (14.0-18.0); LYMPHOCYTES % 13.9 % (20.0-50.0); MEAN CORPUSCULAR VOLUME 99.3 fL (80.0-94.0); MEAN PLATELET VOLUME 8.7 fl (7.4-10.4); MONOCYTES % 13.9 % (2.0-8.0); NEUTROPHILS % 67.9 % (40.0-76.0); PLATELET 116 x1000/uL (130-400); RED BLOOD CELL COUNT 3.79 mill/uL (4.7-6.1)
[2018-09-25 07:31] LABS: CHLORIDE 94 mEq/L (98-107)
[2018-09-25 08:00] VITALS: BP 121/68
[2018-09-25] MEDS ORDERED: PNEUMOCOCCAL 23-VAL P-SAC VAC 0.5 ML IM ONE (08:00)
[2018-09-25] MEDS ORDERED: LEVETIRACETAM 500MG TABLET PO SCH (09:00)
[2018-09-25] MEDS ORDERED: AMLODIPINE 5MG TABLET PO SCH (09:00)
[2018-09-25] MEDS ORDERED: POTASSIUM CHLORIDE 20MEQ TABLET SR PO NR (09:30)
[2018-09-25] MEDS ORDERED: INFLUENZA VIRUS VACCINE(AFLURIA) 0.5ML SYR IM ONE (10:00)
[2018-09-25 12:00] VITALS: BP 124/71
[2018-09-25 14:49] VITALS: BP 124/71
[2018-09-25] MEDS ORDERED: FOLIC ACID 1 MG, THIAMINE HCL 100 MG, MVI, ADULT NO.1 10 ML in DEXTROSE 5% WATER 1,000 ML IV SCH ×4 (22:00)
== END 2018-09-25 14:00 | disposition home or self-care (01) | DRG 53 ==
LOC: ER 13:16 → EDBEDREQTM 17:15 → EDBEDREQ 17:16 → 5WST 19:20 → EDBEDREQ 19:21 → EDBEDREQTM 19:21 → ENRESERV 09-25 01:44
PROVIDERS: ADMIT Internal Medicine; ATTEND Internal Medicine
DX: G40.409 Other generalized epilepsy and epileptic syndromes, not intractable, without status epilepticus (principal); E87.1 Hypo-osmolality and hyponatremia; K76.0 Fatty (change of) liver, not elsewhere classified; D64.9 Anemia, unspecified; F10.239 Alcohol dependence with withdrawal, unspecified; F12.90 Cannabis use, unspecified, uncomplicated; I10 Essential (primary) hypertension; Z90.49 Acquired absence of other specified parts of digestive tract; Z79.899 Other long term (current) drug therapy
CPT/HCPCS: 36415; 71045; 80048; 80185; 80320; 83735; 84484; 93005; 93970; 96361; 96365; 96375; 99285; J1885; J1953; J2060; J2405; J3411; J3490; J7030; J7042; J7070; G0480

== ENCOUNTER 2018-10-12 14:40 | Inpatient (IN) | payer OTHER ==
[~2018-10-12] VITALS: Ht 172.7 cm; Wt 89.8 kg
[~2018-10-12 14:40] MED LIST changes: -Folic Acid PO; -KEPPSOL PO; -Thiamine Hcl PO
[2018-10-12] MEDS ORDERED: SODIUM CHLORIDE 0.9% 1,000 ML IV ONE (15:07)
[2018-10-12] MEDS ORDERED: LORAZEPAM 2MG/ML CPJ IV ONE (15:15)
[2018-10-12 15:54] LABS: BASOPHILS % 1.5 % (0.0-2.0); EOSINOPHILS % 2.4 % (0.0-5.0); HEMATOCRIT. 37.7 % (42.0-52.0); MEAN CORPUSCULAR HEMOGLOBIN 34.3 pg (28.0-32.0); MEAN CORPUSCULAR VOLUME 99.7 fL (80.0-94.0); MEAN PLATELET VOLUME 7.7 fl (7.4-10.4); MONOCYTES % 7.9 % (2.0-8.0); NEUTROPHILS % 74.2 % (40.0-76.0); PLATELET 147 x1000/uL (130-400); RED BLOOD CELL COUNT 3.79 mill/uL (4.7-6.1); RED CELL DISTRIBUTION WIDTH 13.8 % (11.6-14.6)
[2018-10-12 15:58] LABS: CHLORIDE 102 mEq/L (98-107)
[2018-10-12 16:02] LABS: ETHANOL BLOOD 76 mg/dL
[2018-10-12 16:06] LABS: INR 1.1; PROTHROMBIN TIME 10.9 sec (9.6-11.0)
[2018-10-12 16:07] LABS: CREATINE KINASE 195 IU/L (39-308)
[2018-10-12] MEDS ORDERED: LEVETIRACETAM 1000MG/100ML 100 ML IV ONE (16:15)
[2018-10-12] MEDS ORDERED: PHENYTOIN SODIUM 1,000 MG in SODIUM CHLORIDE 0.9% 100 ML IV ONE (16:45)
[2018-10-12 18:05] LABS: *AMPHETAMINES SCREEN URINE NEGATIVE (NEGATIVE); *BARBITURATES SCREEN URINE NEGATIVE (NEGATIVE); *BENZODIAZEPINES SCREEN URINE PRESUMTIVE POSITIVE (NEGATIVE); CANNABINOID URINE SCREEN PRESUMTIVE POSITIVE (NEGATIVE); METHADONE URINE SCREEN NEGATIVE (NEGATIVE); OPIATES URINE SCREEN NEGATIVE (NEGATIVE); PHENCYCLIDINE URINE SCREEN NEGATIVE (NEGATIVE)
[2018-10-12 18:06] LABS: *COCAINE SCREEN URINE NEGATIVE (NEGATIVE)
[2018-10-12 21:50] VITALS: BP 151/83
[2018-10-13] VITALS: BP 145/93
[2018-10-13] MEDS ORDERED: DOCUSATE SODIUM 100MG CAPSULE PO PRN (00:15)
[2018-10-13] MEDS ORDERED: ACETAMINOPHEN 325MG TABLET PO PRN (00:15)
[2018-10-13] MEDS ORDERED: CLONIDINE 0.1MG TABLET PO PRN (00:15)
[2018-10-13] MEDS ORDERED: ONDANSETRON HCL 4MG/2ML INJ IV PRN (00:15)
[2018-10-13] MEDS ORDERED: LORAZEPAM 2MG/ML CPJ IV PRN (00:15)
[2018-10-13] MEDS: SODIUM CHLORIDE 0.9% 1,000 ML IV SCH ×3 (01:38→20:15)
[2018-10-13] MEDS ORDERED: MVI, ADULT NO.1 10 ML, FOLIC ACID 1 MG, THIAMINE HCL 100 MG in SODIUM CHLORIDE 0.9% 1,0... IV SCH ×4 (02:00)
[2018-10-13] MEDS ORDERED: PHENYTOIN SODIUM 500 MG in SODIUM CHLORIDE 0.9% 50 ML IV SCH (03:00)
[2018-10-13 04:00] VITALS: BP 135/81
[2018-10-13] MEDS: PHENYTOIN SODIUM EXTENDED 100MG CAPSULE PO SCH ×3 (06:06→21:37)
[2018-10-13 08:00] VITALS: BP 152/96
[2018-10-13] MEDS: LEVETIRACETAM 500MG TABLET PO SCH ×2 (08:24→21:37)
[2018-10-13] MEDS: ENOXAPARIN 40MG/0.4ML SYR SUBCUT SCH (08:25)
[2018-10-13 12:00] VITALS: BP 138/95
[2018-10-13 16:00] VITALS: BP 129/91
[2018-10-13 20:00] VITALS: BP 140/86
[2018-10-14] VITALS: BP 125/84
[2018-10-14 04:00] VITALS: BP 135/103
[2018-10-14] MEDS: PHENYTOIN SODIUM EXTENDED 100MG CAPSULE PO SCH (05:28)
[2018-10-14] MEDS: SODIUM CHLORIDE 0.9% 1,000 ML IV SCH (05:30)
[2018-10-14 06:06] LABS: HEMATOCRIT. 37.4 % (42.0-52.0); HEMOGLOBIN. 13.1 g/dL (14.0-18.0); MEAN CORPUSCULAR HEMOGLOBIN 34.6 pg (28.0-32.0); MEAN CORPUSCULAR VOLUME 98.7 fL (80.0-94.0); MEAN PLATELET VOLUME 8.5 fl (7.4-10.4); PLATELET 134 x1000/uL (130-400); RED BLOOD CELL COUNT 3.79 mill/uL (4.7-6.1); RED CELL DISTRIBUTION WIDTH 13.6 % (11.6-14.6)
[2018-10-14 06:07] LABS: CHLORIDE 102 mEq/L (98-107)
[2018-10-14 08:00] VITALS: BP 141/91
[2018-10-14] MEDS: IPRATROPIUM/ALBUTEROL 0.5-3(2.5)MG/3ML NEB INH PRN ×2 (08:51→08:52)
[2018-10-14] MEDS: LEVETIRACETAM 500MG TABLET PO SCH (09:07)
[2018-10-14] MEDS: ENOXAPARIN 40MG/0.4ML SYR SUBCUT SCH (09:07)
[2018-10-14 11:25] LABS: PLATELET ESTIMATE NORMAL
== END 2018-10-14 11:20 | disposition left against medical advice (07) | DRG 53 ==
LOC: ER 14:40 → 7WST 16:41 → EDBEDREQ 16:45 → ENRESERV 20:11
PROVIDERS: ADMIT Internal Medicine; ATTEND Internal Medicine
DX: G40.89 Other seizures (principal); G93.41 Metabolic encephalopathy; F10.239 Alcohol dependence with withdrawal, unspecified; F12.90 Cannabis use, unspecified, uncomplicated; R74.0 Nonspecific elevation of levels of transaminase and lactic acid dehydrogenase [LDH]; F17.200 Nicotine dependence, unspecified, uncomplicated; Z90.49 Acquired absence of other specified parts of digestive tract; Z91.19 Patient's noncompliance with other medical treatment and regimen
CPT/HCPCS: 36415; 71045; 80048; 80185; 80305; 80320; 82550; 83880; 93005; 96365; 96366; 96368; 96375; 99291; C1893; J1165; J1650; J1953; J2060; J3411; J3490; J7030; J7050; G0480